=== PATIENT | female | born 1980 | race Caucasian/White ===

== ENCOUNTER → 2016-12-30 | Outpatient (CLI) | payer BC ==
[2016-12-30 12:39] LABS: ESTIMATED AVERAGE GLUCOSE 120 mg/dl; HA1C FLAG Normal (Normal)
[2016-12-30 13:47] LABS: ALB/GLOB RATIO 0.9 (0.9-2); ALKALINE PHOSPHATASE 92 U/L (45-117); ALT/SGPT 27 U/L (12-78); AST/SGOT 18 U/L (15-37); BLOOD UREA NITROGEN 7 mg/dl (7-18); BUN/CREATININE RATIO 8.7 (10-20); CALCIUM 9.2 mg/dl (8.5-10.1); CARBON DIOXIDE 19 mmol/L (21-32); CHLORIDE 107 mmol/L (98-107); CREATININE 0.85 mg/dl (0.60-1.20); GLUCOSE 90 mg/dl (70-99); HDL CHOLESTEROL 39 mg/dl; POTASSIUM 3.5 mmol/L (3.5-5.1); SODIUM 138 mmol/L (136-145)
[2016-12-30 13:48] LABS: CHOLESTEROL 246 mg/dl (0-200); CHOLESTEROL/HDL RATIO 6.3; LDL CHOLESTEROL CALCULATED 157 mg/dl; TRIGLYCERIDES 252 mg/dl (0-150); VERY LOW DENSITY LIPOPROT CALC 50 mg/dl
== END | disposition home or self-care (01) ==
LOC: C.LAB 09:58
PROVIDERS: ATTEND Family Medicine
DX: R73.01 Impaired fasting glucose (principal); E78.2 Mixed hyperlipidemia